=== PATIENT | male | born 1950 | race Caucasian/White ===

== ENCOUNTER 2017-03-21 13:06 | Outpatient (CLI) | payer MEDICARE | END 2017-03-21 13:07 | disposition home or self-care (01) | LOC: CP 13:06 | PROVIDERS: ATTEND Internal Medicine | DX: J44.9 Chronic obstructive pulmonary disease, unspecified (principal) | CPT/HCPCS: 94060; 94727; 94729 ==

== ENCOUNTER 2017-08-04 20:30 | Outpatient (CLI) | payer MEDICARE | END 2017-08-04 20:31 | disposition home or self-care (01) | LOC: SLEEPLAB 20:30 | PROVIDERS: ATTEND Internal Medicine | DX: G47.33 Obstructive sleep apnea (adult) (pediatric) (principal); G47.61 Periodic limb movement disorder; G47.31 Primary central sleep apnea; R09.02 Hypoxemia | CPT/HCPCS: 95811 ==

== ENCOUNTER 2017-09-21 09:27 | Outpatient (CLI) | payer MEDICARE ==
--- NOTE | 2017-09-21 10:56 | RAD ---
CHEST 2 VIEWS: HISTORY: Dyspnea. COMPARISON: Chest radiograph 11/12/16. FINDINGS: Tiny right effusion is similar. There is a nodular mass right lower lobe. Adjacent to this is also a mass-like opacity. There is layering left effusion. No pneumothorax. IMPRESSION: Concern for possible 2 right lower lobe masses that may reflect focal localization of fluid in the fi ssure. CT of the chest with contrast recommended. POS: [facility]
== END 2017-09-21 09:28 | disposition home or self-care (01) ==
LOC: RAD 09:27
PROVIDERS: ATTEND Internal Medicine
DX: R06.00 Dyspnea, unspecified (principal); R91.8 Other nonspecific abnormal finding of lung field
CPT/HCPCS: 71046

== ENCOUNTER 2017-09-21 10:47 | Inpatient (IN) | payer MEDICARE ==
[2017-09-21 11:27] LABS: #Eosinphils 0.1 thou/uL (0.0-0.7); #Lymphocytes 1.9 thou/uL (1.20-3.40); #Monocytes 1.1 thou/uL (0.11-0.59); #Neutrophils 8.2 thou/uL (1.40-6.50); %Basophils 0.3 % (0.0-1.0); %Eosinophils 1.2 % (0.0-10.0); %Lymphocytes 16.8 % (21.0-51.0); %Monocytes 9.9 % (0.0-10.0); %Neutrophils 71.8 % (42.0-75.0); Mean Corpuscular HGB CONC 30.8 g/dL (32.0-36.0); Mean Corpuscular Hemoglobin 23.9 pg (27.0-31.0); Mean Corpuscular Volume 77.7 fl (80.0-94.0); Mean Platelet Volume 6.5 fL (7.4-10.4); Platelet Count 442 thou/uL (130-400); RBC Distribution Width 16.9 % (11.5-14.5); Red Blood Cell (RBC) Count 5.03 mill/uL (4.70-6.10); White Blood Cell (WBC) Count 11.4 thou/uL (4.8-10.8)
[2017-09-21 11:56] LABS: CKMB 0.4 ng/mL (0-6.6); Troponin I Less than 0.010 ng/mL (< 0.028)
[2017-09-21 11:58] LABS: ALT (SGPT) 10 U/L (8-55); AST (SGOT) 10 U/L (5-34); Albumin 2.8 g/dL (3.4-4.8); Alkaline Phosphatase 72 U/L (40-150); Anion Gap 10 mmol/L (10-20); BUN (Urea Nitrogen) 23 mg/dL (8.4-25.7); Bilirubin, Total 0.4 mg/dL (0.2-1.2); Calc. Creatinine Clearance 0 mL/min (70-130); Calcium 8.4 mg/dL (7.8-10.44); Carbon Dioxide 25 mmol/L (23-31); Chloride 107 mmol/L (98-107); Estimated GFR-MDRD 75; Globulin 3.4 g/dL (2.4-3.5); Glucose 80 mg/dL (80-115); Potassium 4.2 mmol/L (3.5-5.1); Protein, Total 6.2 g/dL (5.8-8.1); Sodium 138 mmol/L (136-145)
[2017-09-21] MEDS ORDERED: Furosemide 40 MG/4 ML VIAL ONE (14:14)
[2017-09-21] MEDS ORDERED: Acetaminophen 325 MG TAB PO PRN (15:05)
[2017-09-21] MEDS ORDERED: Guaifenesin DM 100-10/5 ML UDCUP PO PRN (15:05)
[2017-09-21] MEDS ORDERED: predniSONE 20 MG TAB PO SCH (15:30)
[2017-09-21 16:08] VITALS: BMI 21.7
--- NOTE | 2017-09-21 17:11 | HP ---
REASON FOR ADMISSION: Anasarca, mesothelioma with likely recurrence and bilateral effusion with shortness of breath on minimal exertion, acute respiratory failure with hypoxia with saturations of less than 90% on arrival here in the ER. HISTORY OF PRESENT ILLNESS: The patient gives history of planned bilateral hernia repair at [facility] by Dr. Guthrie tomorrow. In view of this, he had gone to see Dr. Santillan for pulmonary clearance. The patient has anasarca with fluid retention and was also hypoxic in his office. He has been progressively getting short of breath and was in fact getting worse even with minimal exertion. He was told he needs diuresis and had to get admitted. The patient has known history of mesothelioma diagnosed in 2011. He was given 1 year of chemo plus 6 months of maintenance treatment by Dr. Crockett. The patient stopped treatments as he could not tolerate it anymore from 2013. He has had follow ups with Dr. Crockett with PET scans and x-rays. The at bedside adds that he has not seen Dr. Crockett from last year and a half now. No complaints of fever. Has expectoration of clear sputum. No complaints of chest pain or palpitation. The patient has orthopnea and is comfortable at 45 degrees head end elevation. PAST MEDICAL AND SURGICAL HISTORY: History of prostatic hyperplasia with self catheterization up to 6 times a day, history of mesothelioma diagnosed in 2011, has finished a year of chemo and 6 months of maintenance treatment. He could not tolerate and had quit taking all together in 2013. C4-C5 neck surgery, varicose vein ablation done by Dr. Luu, surgery for intussusception as an infant, COPD. CURRENT MEDICATIONS: Lasix 40 mg twice daily, Flonase inhaler p.r.n., albuterol inhaler from last 1 week q.6 hours p.r.n., finasteride 5 mg daily. ALLERGIES: Allergic to SULFA. PERSONAL HISTORY: Does not abuse alcohol or drugs. Quit smoking in 10/2016 and smoked one pack a day for nearly 40 years. FAMILY HISTORY: Mother of old age at the age of 92 years. Father at the age of 68 years. He has had history of [place], brain aneurysm and stroke. REVIEW OF SYSTEMS: The following complete review of systems was negative, unless otherwise mentioned in the HPI or below: Constitutional: Weight loss or gain, ability to conduct usual activities. Skin: Rash, itching. Eyes: Double vision, pain. ENT/Mouth: Nose bleeding, neck stiffness, pain, tenderness. Cardiovascular: Palpitations, dyspnea on exertion, orthopnea. Respiratory: Shortness of breath, wheezing, cough, hemoptysis, fever or night sweats. Gastrointestinal: Poor appetite, abdominal pain, heartburn, nausea, vomiting, constipation, or diarrhea. Genitourinary: Urgency, frequency, dysuria, nocturia. Musculoskeletal: Pain, swelling. Neurologic/Psychiatric: Anxiety, depression. Allergy/Immunologic: Skin rash, bleeding tendency. CODE STATUS: FULL. Power of workers compensation defense attorney is his . PHYSICAL EXAMINATION: GENERAL: The patient is a 67-year-old male who is currently not in any acute distress. VITAL SIGNS: Blood pressure 134/88, pulse 84 per minute, respiratory rate 22 per minute, temperature 98.2 degrees Fahrenheit, saturating 93% on 4 liters nasal cannula, was less than 90% on room air on arrival. NECK: Supple, no elevated JVD. HEENT: Eyes, extraocular muscles intact. Pupils reacting to light. Oral cavity mucous membranes are moist. No exudates or congestion. CARDIOVASCULAR: S1, S2 heard. Regular rhythm. RESPIRATORY: Air entry is decreased bilaterally. There are rales plus in the intrascapular area. ABDOMEN: Soft, bowel sounds heard. No tenderness, rigidity or guarding. He has edema around waist and lower abdomen, scrotal edema as well. EXTREMITIES: Mild pedal edema plus, no calf tenderness. VASCULAR SYSTEM: Peripheral pulses 1+ bilateral, no ischemic ulcerations or gangrene. CENTRAL NERVOUS SYSTEM: No gross focal deficits seen. Patient is alert, awake , oriented well. PSYCHIATRIC: The patient's mood is euthymic. No hallucinations or delusions. LABORATORY DATA AND X-RAY FINDINGS: White count of 11, H&H is 12 and 39, platelet count 442, MCV is 77 with 71% neutrophils. Electrolytes are stable. BUN 23, creatinine 0.9, glucose 80. Liver enzymes are within normal limits. Albumin is 2.8. Chest x-ray done shows two right lower lobe masses, which may reflect focal localization of fluid in the fissure. EKG done shows sinus rhythm at 83 beats per minute. There is incomplete RBBB. Prior echo done in shows an EF of 50%-55%. There is small pericardial effusion then. CLINICAL IMPRESSION AND PLAN: The patient will be admitted to medical floor for acute on chronic obstructive pulmonary disease exacerbation, anasarca with volume retention including bilateral pleural effusion and edema over the entire back area. The patient states he usually ambulates like he can go around the entire [employer] in one go. He has not been able to do so from last 4 weeks or so. This has been gradually getting worse to the point that he is getting short of breath even for moving from his room to the restroom now. The plan is to diurese him with Lasix 40 mg IV q.12 hours along with DuoNeb. We will consult Dr. Santillan. We will also obtain a CT chest after diuresis to see for the mass and for better delineation of his lung massey. He has known history of mesothelioma and likely has a recurrence from it. His ejection fraction was good in 2017. The patient has low albumin of 2.8 as well which might be contributing for his anasarca. We will continue to closely monitor him on medical floor. STEW
[2017-09-21] MEDS: Amoxicillin/Potassium Clav 875 MG TAB PO SCH (21:08)
[2017-09-21] MEDS: guaiFENesin ER 600 MG TAB PO SCH (21:09)
[2017-09-21] MEDS: Famotidine 20 MG TAB PO SCH (21:09)
[2017-09-21] MEDS: Docusate 100 MG CAP PO SCH (21:09)
[2017-09-22 05:07] LABS: #Lymphocytes 0.6 thou/uL (1.20-3.40); #Monocytes 0.3 thou/uL (0.11-0.59); #Neutrophils 6.6 thou/uL (1.40-6.50); %Basophils 0.6 % (0.0-1.0); %Eosinophils 0.1 % (0.0-10.0); %Lymphocytes 8.4 % (21.0-51.0); %Monocytes 3.7 % (0.0-10.0); %Neutrophils 87.1 % (42.0-75.0); Hemoglobin 11.3 g/dL (14.0-18.0); Mean Corpuscular HGB CONC 30.3 g/dL (32.0-36.0); Mean Corpuscular Hemoglobin 23.3 pg (27.0-31.0); Mean Corpuscular Volume 76.8 fl (80.0-94.0); Mean Platelet Volume 6.8 fL (7.4-10.4); Platelet Count 427 thou/uL (130-400); RBC Distribution Width 16.7 % (11.5-14.5); Red Blood Cell (RBC) Count 4.83 mill/uL (4.70-6.10); White Blood Cell (WBC) Count 7.6 thou/uL (4.8-10.8)
[2017-09-22] MEDS: Furosemide 40 MG/4 ML VIAL SLOW IVP SCH ×2 (05:28→14:36)
[2017-09-22 05:36] LABS: Anion Gap 8 mmol/L (10-20); BUN (Urea Nitrogen) 22 mg/dL (8.4-25.7); Calc. Creatinine Clearance 74 mL/min (70-130); Calcium 8.2 mg/dL (7.8-10.44); Carbon Dioxide 26 mmol/L (23-31); Chloride 106 mmol/L (98-107); Estimated GFR-MDRD 78; Glucose 149 mg/dL (80-115); Potassium 4.2 mmol/L (3.5-5.1); Sodium 136 mmol/L (136-145)
[2017-09-22] MEDS: guaiFENesin ER 600 MG TAB PO SCH ×2 (08:16→22:03)
[2017-09-22] MEDS: Amoxicillin/Potassium Clav 875 MG TAB PO SCH ×2 (08:16→22:03)
[2017-09-22] MEDS: Enoxaparin Sodium 40 MG/0.4 ML SYRINGE SC SCH (08:16)
[2017-09-22] MEDS: predniSONE 20 MG TAB PO SCH (08:16)
[2017-09-22] MEDS: Finasteride 5 MG TAB PO SCH (08:16)
[2017-09-22] MEDS: Famotidine 20 MG TAB PO SCH ×2 (08:16→22:03)
[2017-09-22] MEDS: Docusate 100 MG CAP PO SCH ×2 (08:16→22:03)
--- NOTE | 2017-09-22 17:06 | CON ---
DATE OF CONSULTATION: 09/22/2017 SERVICE: Pulmonary Medicine. REASON FOR CONSULT: Acute on chronic hypoxic respiratory failure. HISTORY OF PRESENT ILLNESS: The patient is a 67-year-old white male with past medical history significant for chronic diastolic heart failure. He usually takes Lasix on a daily basis. Recently, it has been a little bit less effective. He ended up with massive volume overload. He was supposed to go for an operation today for an elective hernia repair. Ultimately, he came to my office because he was so short of breath, he could barely walk across the room. When I listened to him, it was clear that he was significantly volume overloaded. As such, his saturations were 80% in my office and I redirected him to the Emergency Department. I asked his to cancel the surgery because under these circumstances, he certainly would not be optimized to proceed with that. He was touch frustrated, but understood that moving forward with the surgery under these conditions would increase his risk. Either way, he was put in the hospital. He was appropriately diuresed overnight. This morning, he feels incredible. He has been breathing much better. He got first not impressed that he has long time last night. He has been ambulating in the hallways almost continuously. He currently denies any fevers, chills, nausea or vomiting. He is coughing up a little bit of white sputum, but it still less traumatic today than it was previously. He is no longer having any orthopnea. At home, he wears a noninvasive ventilator for severe obstructive and central sleep apneas. PAST MEDICAL HISTORY: 1. Chronic diastolic heart failure. 2. Obstructive sleep apnea, severe. 3. Essential sleep apnea, severe. 4. Benign prostate hyperplasia. 5. Emphysema, severe. 6. Chronic obstructive pulmonary disease, mild. PAST SURGICAL HISTORY: 1. Abdominal surgery for intussusception as an . 2. Leg vein ablation. 3. C4-C5 neck surgery. 4. History of mesothelioma diagnosed in the right chest cavity in 2011, status post chemotherapy. ALLERGIES: SULFA. MEDICATIONS: List of his inpatient medications were reviewed. No specific updates were made at this time. I did add antibiotics and steroids for his mild COPD exacerbation yesterday. SOCIAL HISTORY: The patient has a greater than [id number] history of smoking , but quit remotely. He does not use any alcohol or illicit drugs. He has no exposure to chemicals, dust asbestos, or tuberculosis. FAMILY HISTORY: Noncontributory. REVIEW OF SYSTEMS: General, head, ears, eyes, nose, throat, cardiovascular, respiratory, GI, , musculoskeletal, neurologic and skin is negative except as mentioned in the HPI. PHYSICAL EXAMINATION: VITAL SIGNS: Afebrile, pulse 81, blood pressure 107/67, respirations 18, saturation 93% on 3 liters nasal cannula. GENERAL: The patient is awake and alert, in no apparent distress. LUNGS: Much improved air entry in the basilar region. He still has a little dullness to percussion there. There are some crackles present, but less extensive. Minimal prolongation of the expiratory phase is present and I do not appreciate any wheezing. HEART: Normal rate, regular. ABDOMEN: Soft, nontender, and nondistended. Bowel sounds are positive. MUSCULOSKELETAL: No cyanosis or clubbing. Yesterday, he had 2+ edema. Today, he has got trace edema of the bilateral lower extremities. NEUROLOGIC: Grossly nonfocal. LABORATORY DATA: WBC 7.6, hemoglobin 11.3, platelets 427,000. Basic metabolic profile is essentially unremarkable. Liver function studies are normal. Troponin is negative x1 and BNP was only 92. IMAGING: Chest x-ray yesterday demonstrated increasing pleural effusions, fluid in the fissure bilaterally. ASSESSMENT: 1. Acute on chronic hypoxic respiratory failure. 2. Chronic obstructive pulmonary disease with mild acute exacerbation. 3. Acute on chronic diastolic heart failure. 4. Obstructive sleep apnea, severe. 5. Central sleep apnea, severe. 6. History of mesothelioma. PLAN: I will continue to diurese the patient's euvolemia. Antibiotics and steroids can be discontinued after a total duration of 5 days. I will repeat a chest x-ray tomorrow morning. If he is back down to room air and the effusions are getting smaller, we can consider him for transition out of the hospital in the morning. Pulmonary will continue to follow while the patient remains in- house. From my perspective, he is now optimized to proceed with an elective outpatient procedure. He can call his physician on Monday to reschedule his elective herniorrhaphy. 70 minutes have been devoted to this patient in various activities. I personally reviewed all imaging studies and laboratory data noted within this document. For fifty percent of this time, I was interacting with the patient at the bedside or coordinating care with the care team. For the remainder of the time I was immediately available to the patient in the hospital unit. STEW
--- NOTE | 2017-09-22 18:46 | PDOC.PN ---
- Subjective Encounter Start Date: 09/22/17 Encounter Start Time: 09:20 Subjective: breathing better, no chest pain or sob - Objective Resuscitation Status: Resuscitation Status FULL:Full Resuscitation MAR Reviewed: Yes Vital Signs & Weight: Vital Signs (12 hours) Temp Pulse Resp BP Pulse Ox 09/22/17 08:00 98.2 F 81 18 93 L 09/22/17 07:15 98.2 F 81 18 107/67 93 L Weight Weight 159 lb 11.2 oz I&O: 09/21/17 09/22/17 09/23/17 06:59 06:59 06:59 Intake Total 600 Output Total 1300 Balance -700 Result Diagrams: 09/22/17 04:37 09/22/17 04:37 Phys Exam - Physical Examination HEENT: PERRLA, moist MMs Neck: no JVD, supple Respiratory: no wheezing rales+ Cardiovascular: RRR, no significant murmur Gastrointestinal: soft, non-tender, positive bowel sounds lower abd post area edema++ Musculoskeletal: no edema, pulses present Neurological: non-focal, moves all 4 limbs Psychiatric: normal affect, A&O x 3 Dx/Plan (1) COPD exacerbation Code(s): J44.1 - CHRONIC OBSTRUCTIVE PULMONARY DISEASE W (ACUTE) EXACERBATION Status: Acute (2) H/O malignant mesothelioma Code(s): Z85.89 - PERSONAL HISTORY OF MALIGNANT NEOPLASM OF ORGANS AND SYSTEMS Status: Chronic (3) Acute respiratory failure with hypoxia Code(s): J96.01 - ACUTE RESPIRATORY FAILURE WITH HYPOXIA Status: Resolved (4) ZOIE (obstructive sleep apnea) Code(s): G47.33 - OBSTRUCTIVE SLEEP APNEA (ADULT) (PEDIATRIC) Status: Chronic (5) Anasarca Code(s): R60.1 - GENERALIZED EDEMA Status: Acute Comment: resolving, due to malignancy and low albumin with deconditioning (6) Hypoalbuminemia Code(s): E88.09 - OTH DISORDERS OF PLASMA-PROTEIN METABOLISM, NEC Status: Chronic Comment: due to malignancy (7) Chronic anemia Code(s): D64.9 - ANEMIA, UNSPECIFIED Status: Chronic (8) Bilateral pleural effusion Code(s): J90 - PLEURAL EFFUSION, NOT ELSEWHERE CLASSIFIED Status: Acute (9) BPH (benign prostatic hyperplasia) Code(s): N40.0 - BENIGN PROSTATIC HYPERPLASIA WITHOUT LOWER URINRY TRACT SYMP Status: Chronic Qualifiers: Lower urinary tract symptom presence: symptoms present Comment: does in and out cath at home, here on cabello due to diuresis - Plan gentle diuresis -: augmentin, nebs, prednisone -: hemostable -: is amb in hallway -: has positional edema around waist line due to deconditioning and low alb * . Review of Systems - Medications/Allergies Allergies/Adverse Reactions: Allergies Allergy/AdvReac Type Severity Reaction Status Date / Time Sulfa (Sulfonamide Allergy Headache Verified 09/21/17 15:40 Antibiotics) Medications: Current Medications Acetaminophen (Tylenol) 650 mg PO Q4H PRN PRN Reason: Headache/Fever or Pain Albuterol/Ipratropium (Duoneb) 3 ml NEB [id number] [facility] Last Admin: 09/22/17 12:10 Dose: Not Given Amoxicillin/Clavulanate Potassium (Augmentin) 875 mg PO Q12HR [facility] Stop: 09/26/17 21:01 Last Admin: 09/22/17 08:16 Dose: 875 mg Docusate Sodium (Colace) 100 mg PO BID [facility] Last Admin: 09/22/17 08:16 Dose: 100 mg Enoxaparin Sodium (Lovenox) 40 mg SC 0900 [facility] Last Admin: 09/22/17 08:16 Dose: 40 mg Famotidine (Pepcid) 20 mg PO BID [facility] Last Admin: 09/22/17 08:16 Dose: 20 mg Finasteride (Proscar) 5 mg PO DAILY [facility] Last Admin: 09/22/17 08:16 Dose: 5 mg Furosemide (Lasix) 40 mg SLOW IVP 0600,1400 [facility] Last Admin: 09/22/17 14:36 Dose: 40 mg Guaifenesin (Mucinex) 1,200 mg PO Q12HR [facility] Last Admin: 09/22/17 08:16 Dose: 1,200 mg Prednisone (Prednisone) 40 mg PO QAM[facility] Stop: 09/26/17 08:01 Last Admin: 09/22/17 08:16 Dose: 40 mg
[2017-09-23] MEDS: Furosemide 40 MG/4 ML VIAL SLOW IVP SCH (06:16)
[2017-09-23 07:35] LABS: Anion Gap 10 mmol/L (10-20); BUN (Urea Nitrogen) 28 mg/dL (8.4-25.7); Calc. Creatinine Clearance 78 mL/min (70-130); Calcium 8.3 mg/dL (7.8-10.44); Carbon Dioxide 27 mmol/L (23-31); Chloride 103 mmol/L (98-107); Estimated GFR-MDRD 83; Glucose 98 mg/dL (80-115); Potassium 3.8 mmol/L (3.5-5.1); Sodium 136 mmol/L (136-145)
[2017-09-23] MEDS: guaiFENesin ER 600 MG TAB PO SCH ×2 (07:59→21:24)
[2017-09-23] MEDS: Finasteride 5 MG TAB PO SCH (07:59)
[2017-09-23] MEDS: predniSONE 20 MG TAB PO SCH (08:00)
[2017-09-23] MEDS: Amoxicillin/Potassium Clav 875 MG TAB PO SCH ×2 (08:00→21:24)
[2017-09-23] MEDS: Famotidine 20 MG TAB PO SCH ×2 (08:01→21:24)
[2017-09-23] MEDS: Enoxaparin Sodium 40 MG/0.4 ML SYRINGE SC SCH (08:01)
[2017-09-23] MEDS: Docusate 100 MG CAP PO SCH ×2 (08:01→21:24)
--- NOTE | 2017-09-23 10:51 | RAD ---
TWO VIEWS CHEST: DATE: 09/23/17. PROVIDED CLINICAL HISTORY: Followup effusion. FINDINGS: Comparison is made with the study dated 09/21/17. Cardiac and mediastinal silhouette is unchanged in appearance. Moderate bilateral pleural effusions are noted, which appear slightly improved with resp ect to the prior study. Right lower lung zone mass on the frontal view is redemonstrated. Emphysema tous changes are suggested. There is no evidence for pneumothorax. IMPRESSION: 1. Persistent but slightly improved bilateral pleural effusions. 2. Concern for parenchymal mass involving the right lower lung. This could also reflect loculated p leural fluid. POS: [facility]
--- NOTE | 2017-09-23 11:22 | PDOC.PN ---
- Subjective Encounter Start Date: 09/23/17 Encounter Start Time: 08:25 Subjective: breathing better, is amb in hallway - Objective Resuscitation Status: Resuscitation Status FULL:Full Resuscitation MAR Reviewed: Yes Vital Signs & Weight: Vital Signs (12 hours) Temp Pulse Resp BP Pulse Ox 09/23/17 08:00 97.7 F 71 16 95 09/23/17 07:51 97.7 F 71 16 112/73 99 09/23/17 06:52 74 16 96 09/23/17 00:28 77 16 97 Weight Weight 159 lb 11.2 oz I&O: 09/22/17 09/23/17 09/24/17 06:59 06:59 06:59 Intake Total 600 Output Total 1300 600 Balance -700 -600 Result Diagrams: 09/22/17 04:37 09/23/17 06:51 Phys Exam - Physical Examination HEENT: PERRLA, moist MMs Neck: no JVD, supple Respiratory: no wheezing, no rales Cardiovascular: RRR, no significant murmur Gastrointestinal: soft, non-tender, positive bowel sounds abd wall edema around waist Musculoskeletal: no edema, pulses present Neurological: non-focal, moves all 4 limbs Psychiatric: normal affect, A&O x 3 Dx/Plan (1) COPD exacerbation Code(s): J44.1 - CHRONIC OBSTRUCTIVE PULMONARY DISEASE W (ACUTE) EXACERBATION Status: Acute (2) H/O malignant mesothelioma Code(s): Z85.89 - PERSONAL HISTORY OF MALIGNANT NEOPLASM OF ORGANS AND SYSTEMS Status: Chronic (3) Acute respiratory failure with hypoxia Code(s): J96.01 - ACUTE RESPIRATORY FAILURE WITH HYPOXIA Status: Resolved (4) ZOIE (obstructive sleep apnea) Code(s): G47.33 - OBSTRUCTIVE SLEEP APNEA (ADULT) (PEDIATRIC) Status: Chronic (5) Anasarca Code(s): R60.1 - GENERALIZED EDEMA Status: Acute Comment: resolving, due to malignancy and low albumin with deconditioning (6) Hypoalbuminemia Code(s): E88.09 - OTH DISORDERS OF PLASMA-PROTEIN METABOLISM, NEC Status: Chronic Comment: due to malignancy (7) Chronic anemia Code(s): D64.9 - ANEMIA, UNSPECIFIED Status: Chronic (8) Bilateral pleural effusion Code(s): J90 - PLEURAL EFFUSION, NOT ELSEWHERE CLASSIFIED Status: Acute (9) BPH (benign prostatic hyperplasia) Code(s): N40.0 - BENIGN PROSTATIC HYPERPLASIA WITHOUT LOWER URINRY TRACT SYMP Status: Chronic Qualifiers: Lower urinary tract symptom presence: symptoms present Comment: does in and out cath at home, here on cabello due to diuresis - Plan is diuresing well -: still has edema around waist line -: prefer 1 more day of iv diuretics -: dc plan in am on oral diuretics -: nebs prn, augmentin * . He may reschedule his hernia surgery next week Review of Systems - Medications/Allergies Allergies/Adverse Reactions: Allergies Allergy/AdvReac Type Severity Reaction Status Date / Time Sulfa (Sulfonamide Allergy Headache Verified 09/21/17 15:40 Antibiotics) Medications: Current Medications Acetaminophen (Tylenol) 650 mg PO Q4H PRN PRN Reason: Headache/Fever or Pain Albuterol/Ipratropium (Duoneb) 3 ml NEB [id number] [facility] Last Admin: 09/23/17 06:52 Dose: 3 ml Amoxicillin/Clavulanate Potassium (Augmentin) 875 mg PO Q12HR [facility] Stop: 09/26/17 21:01 Last Admin: 09/23/17 08:00 Dose: 875 mg Docusate Sodium (Colace) 100 mg PO BID [facility] Last Admin: 09/23/17 08:01 Dose: 100 mg Enoxaparin Sodium (Lovenox) 40 mg SC 0900 [facility] Last Admin: 09/23/17 08:01 Dose: 40 mg Famotidine (Pepcid) 20 mg PO BID [facility] Last Admin: 09/23/17 08:01 Dose: 20 mg Finasteride (Proscar) 5 mg PO DAILY [facility] Last Admin: 09/23/17 07:59 Dose: 5 mg Furosemide (Lasix) 40 mg SLOW IVP 0600,1400 [facility] Last Admin: 09/23/17 06:16 Dose: 40 mg Guaifenesin (Mucinex) 1,200 mg PO Q12HR [facility] Last Admin: 09/23/17 07:59 Dose: 1,200 mg Prednisone (Prednisone) 40 mg PO QA-[facility] Stop: 09/26/17 08:01 Last Admin: 09/23/17 08:00 Dose: 40 mg
--- NOTE | 2017-09-23 14:27 | PRG ---
DATE OF SERVICE: 09/23/2017 SERVICE: Pulmonary Medicine. INTERVAL HISTORY: The patient is doing really quite well from a respiratory standpoint. He denies a ny current chest pain, nausea, vomiting, and shortness of breath. His breathing is doing fairly well . He does not have any significant dyspnea any longer. He has been able to walk around the hallways multiple times on room air. Otherwise, there has been no interval change to his condition. PHYSICAL EXAMINATION: VITAL SIGNS: Afebrile, pulse 71, blood pressure 112/73, respirations 16, saturation on room air is 9 3%. GENERAL: The patient is awake and alert. HEENT: Normocephalic, atraumatic. Sclerae are white, conjunctivae pink. Oral mucosa is moist and w ithout lesions. LUNGS: Decent air entry. There is no prolonged expiratory phase, wheezing, rhonchi or crackles. HEART: Normal rate, regular. ABDOMEN: Soft, nontender, and nondistended. Bowel sounds are positive. MUSCULOSKELETAL: No cyanosis or clubbing. There is no pitting in the bilateral lower extremities. NEUROLOGIC: Grossly nonfocal. LABORATORY DATA: Sodium 136. Potassium 3.8 and creatinine 0.91. Basic metabolic profile is otherwi se unremarkable. IMAGING: Chest x-ray demonstrates interval improvement in the pleural effusions and pulmonary vascul ar congestion. The right lower lobe pulmonary lesion previously was represented on CTA of the chest as a loculated pleural effusion from his previous surgery and interventions. ASSESSMENT: 1. Acute hypoxic respiratory failure, resolved. 2. Chronic obstructive pulmonary disease with mild exacerbation. 3. Acute on chronic diastolic heart failure. 4. Obstructive sleep apnea, severe. 5. Central sleep apnea, severe. 6. History of mesothelioma on the right with residual changes on that side. PLAN: The patient's pleural effusions are improving in fairly dramatic fashion. The patient is feel ing much better as well. I will decrease his Lasix to once daily. He can get a dose tomorrow mornin g and if all goes well, he can be considered for transition out of the hospital. From my perspective , he is optimized to proceed with an elective outpatient procedure. Hopefully, his herniorrhaphy can be rescheduled for next week.
[2017-09-24] MEDS ORDERED: Furosemide 40 MG/4 ML VIAL ONE (04:41)
[2017-09-24] MEDS: Furosemide 40 MG/4 ML VIAL SLOW IVP SCH ×2 (05:24→08:10)
[2017-09-24 05:46] LABS: Anion Gap 10 mmol/L (10-20); BUN (Urea Nitrogen) 31 mg/dL (8.4-25.7); Calc. Creatinine Clearance 79 mL/min (70-130); Calcium 8.3 mg/dL (7.8-10.44); Carbon Dioxide 29 mmol/L (23-31); Chloride 103 mmol/L (98-107); Estimated GFR-MDRD 84; Glucose 98 mg/dL (80-115); Magnesium 2.2 mg/dL (1.6-2.6); Potassium 4.3 mmol/L (3.5-5.1); Sodium 138 mmol/L (136-145)
[2017-09-24] MEDS: Finasteride 5 MG TAB PO SCH (08:10)
[2017-09-24] MEDS: Famotidine 20 MG TAB PO SCH (08:10)
[2017-09-24] MEDS: Enoxaparin Sodium 40 MG/0.4 ML SYRINGE SC SCH (08:10)
[2017-09-24] MEDS: Amoxicillin/Potassium Clav 875 MG TAB PO SCH (08:10)
[2017-09-24] MEDS: predniSONE 20 MG TAB PO SCH (08:10)
[2017-09-24] MEDS: Docusate 100 MG CAP PO SCH (08:10)
[2017-09-24] MEDS: guaiFENesin ER 600 MG TAB PO SCH (08:10)
[2017-09-24 11:22] VITALS: BP 120/67; TEMP 97.2
--- NOTE | 2017-09-24 11:37 | PDOC.PN ---
- Subjective Encounter Start Date: 09/24/17 Encounter Start Time: 08:45 Subjective: no sob, feels better -: is amb in hallway - Objective Resuscitation Status: Resuscitation Status FULL:Full Resuscitation MAR Reviewed: Yes Vital Signs & Weight: Vital Signs (12 hours) Temp Pulse Resp BP Pulse Ox 09/24/17 11:21 97.2 F L 73 18 120/67 94 L 09/24/17 08:00 98.0 F 75 18 96 09/24/17 07:31 77 18 93 L 09/24/17 07:00 98.0 F 75 16 124/82 100 09/24/17 00:17 95 16 97 Weight Weight 159 lb 11.2 oz I&O: 09/23/17 09/24/17 09/25/17 06:59 06:59 06:59 Intake Total 1480 800 Output Total 600 2400 2100 Balance -492 -245 -5124 Result Diagrams: 09/22/17 04:37 09/24/17 04:55 Phys Exam - Physical Examination HEENT: PERRLA, moist MMs Neck: no JVD, supple Respiratory: no wheezing, no rales Cardiovascular: RRR, no significant murmur Gastrointestinal: soft, non-tender, positive bowel sounds Musculoskeletal: no edema, pulses present Neurological: non-focal, moves all 4 limbs Psychiatric: normal affect, A&O x 3 Dx/Plan (1) COPD exacerbation Code(s): J44.1 - CHRONIC OBSTRUCTIVE PULMONARY DISEASE W (ACUTE) EXACERBATION Status: Acute (2) H/O malignant mesothelioma Code(s): Z85.89 - PERSONAL HISTORY OF MALIGNANT NEOPLASM OF ORGANS AND SYSTEMS Status: Chronic (3) Acute respiratory failure with hypoxia Code(s): J96.01 - ACUTE RESPIRATORY FAILURE WITH HYPOXIA Status: Resolved (4) ZOIE (obstructive sleep apnea) Code(s): G47.33 - OBSTRUCTIVE SLEEP APNEA (ADULT) (PEDIATRIC) Status: Chronic (5) Anasarca Code(s): R60.1 - GENERALIZED EDEMA Status: Acute Comment: resolving, due to malignancy and low albumin with deconditioning (6) Hypoalbuminemia Code(s): E88.09 - OTH DISORDERS OF PLASMA-PROTEIN METABOLISM, NEC Status: Chronic Comment: due to malignancy (7) Chronic anemia Code(s): D64.9 - ANEMIA, UNSPECIFIED Status: Chronic (8) Bilateral pleural effusion Code(s): J90 - PLEURAL EFFUSION, NOT ELSEWHERE CLASSIFIED Status: Acute (9) BPH (benign prostatic hyperplasia) Code(s): N40.0 - BENIGN PROSTATIC HYPERPLASIA WITHOUT LOWER URINRY TRACT SYMP Status: Chronic Qualifiers: Lower urinary tract symptom presence: symptoms present Comment: does in and out cath at home, here on cabello due to diuresis - Plan hemostable -: dc pt home on oral lasix -: augmentin, steroid taper over 5 days -: to reschedule his hernia repair this week * .
--- NOTE | 2017-09-26 07:54 | DIS ---
DATE OF ADMISSION: 09/21/2017 DATE OF DISCHARGE: 09/24/2017 DISCHARGE DISPOSITION: Home. PRIMARY DISCHARGE DIAGNOSES: Acute chronic obstructive pulmonary disease exacerbation; acute respira tory failure with hypoxia, resolved; history of malignant mesothelioma; anasarca, resolved; obstructi ve sleep apnea, on CPAP; hypoalbuminemia; chronic anemia; benign prostatic hypertrophy; bilateral ple ural effusions. PROCEDURES DONE DURING HOSPITALIZATION: Chest x-ray done on the day of admission showed bilateral pl eural effusion, there is also parenchymal mass in the right lower lung. H and H 11 and 37, platelet count 427,000 with 87% neutrophils, MCV 76, BUN 31, creatinine 0.9, albumin is 2.8. BNP was 92. DISCHARGE MEDICATION: Augmentin 875 mg p.o. daily for another 4 days, albuterol inhaler q.4 hourly p .r.n., Symbicort inhaler 2 puffs twice daily, finasteride 5 mg p.o. daily, Lasix 40 mg daily, prednis one tapering dose starting at 10 mg daily for 3 days, then 5 mg daily for 4 days and to discontinue. ALLERGIES: Allergic to SULFA. INPATIENT CONSULT: Dr. Santillan for Pulmonology. DISCHARGE PLAN: Patient is to follow up with Dr. Santillan in 2 weeks. He also needs to follow up wit h his general surgeon in 1 week and primary care physician in 1 week. BRIEF COURSE DURING HOSPITALIZATION: Patient initially was sent from Dr. Santillan's office for worsen ing shortness of breath on exertion and anasarca. The patient also had saturations of less than 90% in Dr. Santillan office and on arrival as well. He has had bilateral effusions with anasarca. The pat ient was gently diuresed. He also has history of chronic mesothelioma. The patient stopped taking c hemotherapy from 2013 onwards. The patient was scheduled for bilateral hernia repair and had come to see Dr. Santillan for clearance when all of this happened. He was hospitalized and has had gentle diu resis done. The patient has been ambulating in the hallway now. He is also tolerating oral diet. H is effusions and anasarca are resolving. He needs to continue Lasix as before. The patient is to re schedule his hernia surgery. He has been cleared for the same by Dr. Santillan. He is hemodynamically stable and will be shortly discharged home. Please see a [id number] documentation on [facility] for the day of discharge.
== END 2017-09-24 11:26 | disposition home or self-care (01) | DRG 189 ==
LOC: ERS 10:47 → T4-B 14:01
PROVIDERS: ADMIT Internal Medicine; ATTEND Internal Medicine
DX: J96.01 Acute respiratory failure with hypoxia (principal); I50.32 Chronic diastolic (congestive) heart failure; C45.9 Mesothelioma, unspecified; J44.1 Chronic obstructive pulmonary disease with (acute) exacerbation; J90 Pleural effusion, not elsewhere classified; D64.9 Anemia, unspecified; G47.33 Obstructive sleep apnea (adult) (pediatric); N40.0 Benign prostatic hyperplasia without lower urinary tract symptoms; I45.10 Unspecified right bundle-branch block; K46.9 Unspecified abdominal hernia without obstruction or gangrene
CPT/HCPCS: 36415; 71046; 80048; 80053; 82553; 83735; 83880; 84484; 85025; 93005; 94640; 94760; 96374; J1650; J1940; J7506; J7620

== ENCOUNTER 2017-10-18 10:29 | Outpatient (CLI) | payer MEDICARE ==
--- NOTE | 2017-10-18 11:09 | RAD ---
PORTABLE AP CHEST XRAY: DATE: 10/18/17. HISTORY: Dyspnea. COMPARISON: 09/23/17. FINDINGS: There is increased density seen at each lung base with mass-like opacities seen at lung base and over lying the right mid lung zone. The mass-like densities could be related to pseudotumor secondary to fluid in the region of the major fissures, but these mass-like densities have increased when compared to prior exam. There are moderate bilateral pleural effusions present. There is minimal patchy den sity seen within the right suprahilar region which could be related to a focal area of pneumonitis. Evidence of prior granulomatous disease. The cardiac silhouette is at the upper limits of normal in size. Pulmonary vasculature is within normal limits. Vascular calcification is seen in the thoracic aorta. IMPRESSION: 1. Moderate bilateral pleural effusions with mass-like densities seen at each lung base which may be related to pseudotumor secondary to fluid within the fissures giving the appearance of lesions. How ever, findings have increased from prior exam, and CT scan thorax is suggested for further evaluation . 2. Minimal patchy density in the right suprahilar region which may be related to a focal area of pne umonitis. This can also be further evaluated on CT examination. CODE T POS: DIANA
== END 2017-10-18 10:30 | disposition home or self-care (01) ==
LOC: RAD 10:29
PROVIDERS: ATTEND Internal Medicine
DX: J90 Pleural effusion, not elsewhere classified (principal); R91.8 Other nonspecific abnormal finding of lung field
CPT/HCPCS: 36415; 71046; 80048; 83735

== ENCOUNTER 2017-11-04 19:15 | Inpatient (IN) | payer MEDICARE ==
[~2017-11-04 19:15] MED LIST: ISOVUE-370 76%-LOCM 1 ML ONE
[2017-11-04 19:52] LABS: #Eosinphils 0.1 thou/uL (0.0-0.7); #Lymphocytes 1.5 thou/uL (1.20-3.40); #Monocytes 1.4 thou/uL (0.11-0.59); #Neutrophils 10.5 thou/uL (1.40-6.50); %Basophils 0.4 % (0.0-1.0); %Eosinophils 0.5 % (0.0-10.0); %Lymphocytes 11.3 % (21.0-51.0); %Monocytes 10.3 % (0.0-10.0); %Neutrophils 77.6 % (42.0-75.0); Hemoglobin 11.6 g/dL (14.0-18.0); Mean Corpuscular HGB CONC 30.8 g/dL (32.0-36.0); Mean Corpuscular Hemoglobin 23.1 pg (27.0-31.0); Mean Corpuscular Volume 75.2 fl (80.0-94.0); Mean Platelet Volume 6.7 fL (7.4-10.4); Platelet Count 439 thou/uL (130-400); RBC Distribution Width 17.1 % (11.5-14.5); Red Blood Cell (RBC) Count 5.01 mill/uL (4.70-6.10); White Blood Cell (WBC) Count 13.6 thou/uL (4.8-10.8)
[2017-11-04 19:58] LABS: INR-International Normal Ratio 1.1; PTT 33.3 SEC (22.9-36.1); Prothrombin Time 14.4 SEC (12.0-14.7)
[2017-11-04 20:15] LABS: ALT (SGPT) 19 U/L (8-55); AST (SGOT) 22 U/L (5-34); Albumin 2.7 g/dL (3.4-4.8); Alkaline Phosphatase 82 U/L (40-150); Anion Gap 12 mmol/L (10-20); BUN (Urea Nitrogen) 30 mg/dL (8.4-25.7); Bilirubin, Total 0.5 mg/dL (0.2-1.2); Calc. Creatinine Clearance 0 mL/min (70-130); Calcium 8.4 mg/dL (7.8-10.44); Carbon Dioxide 31 mmol/L (23-31); Chloride 96 mmol/L (98-107); Estimated GFR-MDRD 70; Globulin 2.9 g/dL (2.4-3.5); Glucose 115 mg/dL (80-115); Potassium 4.2 mmol/L (3.5-5.1); Protein, Total 5.6 g/dL (5.8-8.1); Sodium 135 mmol/L (136-145)
[2017-11-04] MEDS ORDERED: Water For Inject, Bacteriostat 30 ML ONE (20:17)
[2017-11-04] MEDS ORDERED: Ketorolac Tromethamine 30 MG/ML VIAL ONE (20:17)
[2017-11-04] MEDS ORDERED: methylPREDNISolone Sod Succ/PF 125 MG/2 ML VIAL ONE (20:17)
--- NOTE | 2017-11-04 20:18 | RAD ---
CHEST ONE VIEW: 11/04/17 HISTORY: Shortness of breath. COMPARISON: Chest radiograph 10/18/17. FINDINGS: Large layering effusions bilaterally. These have mildly increased in size from the comparison examina tion. There is layering of fluid within both major fissures and the right minor fissure. Heart size is mildly enlarged. No pneumothorax. IMPRESSION: Similar to mildly worsening layering loculated pleural effusions. POS: [facility]
[2017-11-04 20:33] LABS: CKMB 0.2 ng/mL (0-6.6); Troponin I Less than 0.010 ng/mL (< 0.028)
--- NOTE | 2017-11-04 21:14 | CT ---
CT ANGIOGRAM CHEST WITH CONTRAST 11/04/17 HISTORY: Shortness of breath, hypoxia, mesothelioma. COMPARISON: Radiograph same day. CT chest 10/12. FINDINGS: CT angiogram of the chest performed after the intravenous administration of contrast. 3D rendering pr ovided. Loculated effusions are similar to slightly size increase from the comparison examination. Th ere is visceral and parietal hyperenhancement. There are calcified and noncalcified pleural plaques. Pulmonary trunk is dilated to 33 mm. Numerous hypodensities of the liver are similar. Renal cortices are thin. Large calcification superior left renal collecting system measuring 6 mm. Aortic contour is nonaneurysmal. Small pericardial effusion. Abnormal soft tissue nodule abutting the mediastinal pleura on series 2, image 62. This measures 1.2 x 1.6 x 1.7 cm and is increased in size from the comparison examination. Severe emphysematous changes. IMPRESSION: 1. Soft tissue mass measuring up to 1.6 cm in the right upper lobe abutting the mediastinal pleu ra concerning for malignant process. PET CT may be beneficial. 2. Chronic loculated effusions with visceral and parietal pleural hyperenhancement. 3. Pulmonary arterial hypertension. 4. Severe emphysema. 5. No acute pulmonary embolism. 6. Small pericardial effusion. Code T Code LN POS: ROYA
[2017-11-04] MEDS ORDERED: Piperacillin/Tazobactam 3.375 GM VIAL ONE (21:42)
[2017-11-04 22:12] LABS: Bilirubin Negative (Negative); Blood, Urine Moderate (Negative); Clarity TURBID (Clear); Glucose, Urine (Dipstick) Negative (Negative); Leukocyte Large (Negative); Nitrite Positive (Negative); Protein, Urine (Dipstick) Negative (Neg-Trace); Specific Gravity, Urine 1.027 (1.002-1.036); pH, Urine 5.5 (5.0-9.0)
[2017-11-04 22:14] LABS: Bacteria/HPF 4+ HPF (None Seen); Squamous Epithelial 0-3 HPF (0-3)
[2017-11-04 22:15] LABS: Pathc Cast-AUWi Flag 4.65 (0-2.49)
[2017-11-04 22:27] LABS: Renal Epithelial 0-3 HPF (0-3)
[2017-11-04 22:28] LABS: Hyaline Casts/LPF 0-3 HYALINE CAST LPF (0-3 Hyaline)
[2017-11-05] MEDS ORDERED: Ondansetron ODT 4 MG TAB SL PRN (00:19)
[2017-11-05] MEDS ORDERED: Ondansetron HCl/PF 4 MG/2 ML Vial IVP PRN (00:19)
[2017-11-05] MEDS ORDERED: Acetaminophen 325 MG TAB PO PRN (00:19)
[2017-11-05] MEDS ORDERED: Albuterol Sulfate 2.5 mg/3 ml Neb NEB PRN (00:24)
[2017-11-05] MEDS ORDERED: Milk Of Magnesia 30 ML UDCUP PO PRN (00:25)
[2017-11-05] MEDS ORDERED: VANCOMYCIN IVPB PRN (00:38)
[2017-11-05 01:02] VITALS: BMI 20.2
--- NOTE | 2017-11-05 04:13 | HP ---
PRIMARY CARE PHYSICIAN: Dr. Saavedra. PRESENTING COMPLAINT: Shortness of breath. HISTORY OF PRESENT ILLNESS: Mr. Ko Gutiérrez is a 67-year-old male who has a past medical history of BPH, hypertension, and mesothelioma diagnosed in 2011, as well as a history of chronic respiratory failure on 2-3 liters of oxygen at baseline. He presented to the emergency room with complaints of shortness of breath and hypoxia, noting that his oxygen saturation was less than 80% at home and had to increase to about 5 liters of oxygen to maintain saturations. He also has a cough, but reports this is his chronic cough and has not been any recent changes in the cough. He has a fever with temperature of 101 degree Fahrenheit, but does not report any chills. He also has some sharp pain below his rib cage, but does not report any overt chest pain, palpitations, PND, orthopnea, or lower extremity edema. He has no abdominal or urinary symptoms. At the emergency room, he was found to have mild leukocytosis of 13.6. Serum chemistry was largely unremarkable and lactic acid was 1.5. Urinalysis showed moderate amount of blood, positive nitrites, leukocyte esterase with increased wbc of greater than 50, and 4+ bacteria. A CTA of his chest/thorax showed severe emphysematous changes and soft tissue mass measuring up to 1.6 cm in the right upper lobe. He also has chronic loculated effusions with visceral and parietal pleural hyperenhancement, there was no acute pulmonary embolism and only a small pericardial effusion seen. Chest x-ray revealed similar to mildly worsening layering of his loculated pleural effusion. EKG showed no signs of acute ischemia. He received nebulizer treatments, IV ketorolac, parenteral steroids and also, vancomycin and Zosyn with marked improvement of his respiratory status. Blood cultures were taken and the patient was admitted for sepsis likely secondary to healthcare associated pneumonia. PAST MEDICAL HISTORY: As stated in the HPI. Other medical history includes COPD. PAST SURGICAL HISTORY: C4-C5 neck surgery, varicose veins ablation, intussusception as an infant. FAMILY HISTORY: Reviewed and noncontributory. SOCIAL HISTORY: Does not use illicit drugs. He quit smoking in 10/2016 after he had smoked a pack a day for nearly 40 years. Does not drink alcohol. ALLERGIES: SULFA. HOME MEDICATIONS: Albuterol sulfate inhaler q.4 hours p.r.n., Augmentin 875 mg q.12 hours, Symbicort 2 puff inhaled b.i.d., finasteride 5 mg daily, fluticasone propionate 1 spray in each naris daily, furosemide 40 mg daily, prednisone 10 mg q.a.m. REVIEW OF SYSTEMS: All systems reviewed and negative except as stated in HPI. PHYSICAL EXAMINATION: VITAL SIGNS: On arrival, blood pressure was 121/89, pulse rate was 99, respiratory rate was 25, and oxygen saturation was 100% on nonrebreather. GENERAL: By the time of my exam, he was not in any acute distress and he seemed comfortable. He was on nasal cannula oxygen. He was saturating at 98%. HEENT: Normocephalic, atraumatic. Not pale, anicteric. PERRLA, EOMI. Moist mucous membranes. NECK: Supple, full range of movement. No JVD. RESPIRATORY: He has crackles in his left lower lung zone with reduced breath sounds globally. CARDIOVASCULAR: S1, S2 with regular rate and rhythm. No murmurs, rubs or gallops. ABDOMEN: Soft, nontender, nondistended. No organomegaly. Bowel sounds normoactive. GENITOURINARY: Scrotal edema. NEUROLOGIC: Alert and well oriented to time, place and person. No focal deficits. MUSCULOSKELETAL: No lower extremity edema. Moves all extremities spontaneously. SKIN: Warm, dry, well-perfused. No rashes or lesions. PSYCHIATRIC: Normal mood and affect. LABORATORY DATA: Urinalysis as stated in HPI. CMP with no marked abnormalities. BNP 115. Troponin less than 0.010. INR 1.1. Hematology showed mild leukocytosis, but otherwise largely unremarkable. IMAGING: CTA chest/thorax: As stated in HPI. Chest x-ray as stated in the HPI. EKG no acute ischemia. ASSESSMENT AND PLAN: 1. Sepsis: This is likely due to an upper respiratory tract infection versus healthcare-associated pneumonia. Blood cultures have been taken and the patient has been started on broad spectrum antibiotic with vancomycin and Zosyn. We will also place on IV Solu-Medrol every 6 hours, as well as scheduled on p.r.n. nebulizer therapy. We will follow up on the blood cultures and consult Pulmonary to reassess the patient in the morning. The patient does not seem to have worsening pleural effusion, so we will not continue on IV furosemide. We will place the patient on his home p.o. furosemide. 2. Acute on chronic hypoxic respiratory failure: As Above. 3. Benign prostatic hypertrophy: We will resume home medication. 4. Hypertension: Blood pressure is currently well controlled. We will resume home medications once confirmed. 5. History of mesothelioma: This was diagnosed in 2011 and he has completed a year of chemo and 6 months of maintenance treatment, which he was unable to tolerate and quit treatment altogether for this in 2013. We will continue treatment per problem #1. 6. Chronic obstructive pulmonary disease: He is in acute on chronic respiratory failure. Treatment as per problem #1. Deep venous thrombosis prophylaxis: Lovenox. Code status: DNI. MTDD
[2017-11-05 04:42] LABS: ALT (SGPT) 16 U/L (8-55); AST (SGOT) 15 U/L (5-34); Albumin 2.5 g/dL (3.4-4.8); Alkaline Phosphatase 74 U/L (40-150); Anion Gap 10 mmol/L (10-20); BUN (Urea Nitrogen) 30 mg/dL (8.4-25.7); Bilirubin, Total 0.3 mg/dL (0.2-1.2); Calc. Creatinine Clearance 52 mL/min (70-130); Calcium 8.6 mg/dL (7.8-10.44); Carbon Dioxide 33 mmol/L (23-31); Chloride 95 mmol/L (98-107); Estimated GFR-MDRD 55; Globulin 3.2 g/dL (2.4-3.5); Glucose 300 mg/dL (80-115); Potassium 4.1 mmol/L (3.5-5.1); Protein, Total 5.7 g/dL (5.8-8.1); Sodium 134 mmol/L (136-145)
[2017-11-05 05:28] LABS: #Lymphocytes 0.7 thou/uL (1.20-3.40); #Monocytes 0.1 thou/uL (0.11-0.59); #Neutrophils 10.1 thou/uL (1.40-6.50); %Basophils 0.1 % (0.0-1.0); %Lymphocytes 6.7 % (21.0-51.0); %Monocytes 0.8 % (0.0-10.0); %Neutrophils 92.3 % (42.0-75.0); Hemoglobin 10.9 g/dL (14.0-18.0); Hypochromia SLIGHT = 6-15 cells (100X) (0-5/hpf); MDiff Complete? YES; Mean Corpuscular HGB CONC 29.4 g/dL (32.0-36.0); Mean Corpuscular Hemoglobin 22.3 pg (27.0-31.0); Mean Corpuscular Volume 75.9 fl (80.0-94.0); Mean Platelet Volume 6.7 fL (7.4-10.4); Microcytosis SLIGHT = 6-15 cells (100X) (0-5/hpf); PLT Morphology Comment Appears Increased; Platelet Count 430 thou/uL (130-400); RBC Distribution Width 17.1 % (11.5-14.5); Red Blood Cell (RBC) Count 4.89 mill/uL (4.70-6.10)
[2017-11-05] MEDS: Piperacillin/Tazobactam 3.375 GM in Sodium Chloride 0.9% 100 ML IVPB SCH ×4 (06:05→23:30)
[2017-11-05] MEDS: Docusate 100 MG CAP PO SCH ×2 (08:54→20:54)
[2017-11-05] MEDS: Vancomycin HCl 1 GM in Premix Bag 1 BAG IVPB SCH ×2 (08:55→20:55)
[2017-11-05] MEDS ORDERED: Enoxaparin Sodium 40 MG/0.4 ML SYRINGE SC SCH (09:00)
[2017-11-05] MEDS ORDERED: Furosemide 40 MG/4 ML VIAL SLOW IVP SCH (09:00)
[2017-11-05] MEDS ORDERED: Vancomycin HCl 1 GM in Sodium Chloride 0.9% 250 ML 250 ML IVPB SCH (09:00)
[2017-11-05] MEDS ORDERED: Nitroglycerin 0.4 MG TAB (25 Tab Bottle) PO PRN (16:38)
[2017-11-05] MEDS ORDERED: Calcium Carbonate 500 MG ChewTAB PO PRN (16:39)
[2017-11-05] MEDS ORDERED: Mag-Al 1200 mg/1200 mg/30 ML UDCUP PO PRN (16:39)
[2017-11-05] MEDS ORDERED: Ketorolac Tromethamine 30 MG/ML VIAL IVP SCH (16:45)
[2017-11-05 17:27] LABS: Troponin I Less than 0.010 ng/mL (< 0.028)
--- NOTE | 2017-11-05 19:38 | CON ---
DATE OF CONSULTATION: 11/05/2017 HISTORY OF PRESENT ILLNESS: A 67-year-old gentleman who presented to the hospital with 2 days histor y of right-sided chest pain, somewhat pleuritic in nature. No fever or chills. When he came to the ER, his temperature was 100. Additionally, he felt his sats were low at home, they are apparently 80 % on 2 liters when he arrived. The patient was diagnosed to have a mesothelioma in 2012. He had seen Dr. Crockett and received chemo therapy, though she has not seen him for at least 3 years or so. He states 6 months ago, he walked about half a block. The last week, his dyspnea has worsened such t hat he can barely walk even 20 feet without getting markedly short of breath. PAST MEDICAL HISTORY: COPD, bilateral loculated pleural effusion, malignant mesothelioma, status pos t chemotherapy, sleep apnea. PAST SURGICAL HISTORY: Included a thoracentesis, C4 neck surgery, some kind of abdominal surgery don e in the past. Previous tobacco abuse, quit smoking some years ago. 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 MEDICATIONS: From home includes metolazone 2.5, Lasix 40, potassium 99, finasteride 5 mg. ALLERGIES: SULFA. REVIEW OF SYSTEMS: Ten point negative. PHYSICAL EXAMINATION: VITAL SIGNS: His O2 sat is 93 on 2 liters, respirations 18, temperature 97, and blood pressure 115/6 3. CHEST: Decreased breath sounds bilaterally. CARDIOVASCULAR: Normal S1, S2, no gallops. ABDOMEN: Soft. EXTREMITIES: No edema. NEUROLOGIC: Awake, alert, responsive. LABORATORY DATA: White count 11,000, H and H of 10 and 37, platelet count 430. His electrolytes are normal. Creatinine is 1.29. Urine shows 50 or greater wbcs. His initial chest x-ray showed bilateral densities in the past, loculated. CT of his chest confirms the above pleural effusion and a spiculated mass. IMPRESSION: 1. Dyspnea, probably secondary to bilaterally large loculated pleural effusion. 2. Malignant mesothelioma. PLAN: He was started on broad-spectrum antibiotics for presumed infection. I was continuing to rosemary calate as soon as we get all the cultures back. In the meantime, agree with nebulizer treatments, st erroxann. We will notify Dr. Santillan.
--- NOTE | 2017-11-05 20:00 | PDOC.PN ---
- Subjective Encounter Start Date: 11/05/17 Encounter Start Time: 14:00 Patient seen and examined for Resp failure. Feels better. No new complaints. No overnight events - Objective Resuscitation Status: Resuscitation Status DNI:No Intubation MAR Reviewed: Yes Vital Signs & Weight: Vital Signs (12 hours) Temp Pulse Resp BP Pulse Ox 11/05/17 18:34 92 L 11/05/17 18:19 83 16 92 L 11/05/17 16:26 97.5 F L 79 16 127/79 92 L 11/05/17 12:22 75 14 94 L 11/05/17 11:31 98.1 F 80 16 132/76 92 L 11/05/17 08:00 97.6 F 74 18 93 L Weight Weight 149 lb 8 oz I&O: 11/04/17 11/05/17 11/06/17 06:59 06:59 06:59 Intake Total 400 1650 Output Total 750 500 Balance -350 1150 Result Diagrams: 11/07/17 04:01 11/07/17 04:01 Radiology Reviewed by me: Yes (CXR - No Pneumonia, loculated pleural eff) Phys Exam - Physical Examination Constitutional: NAD Respiratory: no rales dec AE at bases with scat rhonchi Cardiovascular: RRR, no rub Gastrointestinal: soft, non-tender, positive bowel sounds Musculoskeletal: no edema Neurological: moves all 4 limbs Dx/Plan (1) Acute respiratory failure with hypoxemia Code(s): J96.01 - ACUTE RESPIRATORY FAILURE WITH HYPOXIA Status: Acute (2) Sepsis due to pneumonia Code(s): J18.9 - PNEUMONIA, UNSPECIFIED ORGANISM; A41.9 - SEPSIS, UNSPECIFIED ORGANISM Status: Acute Comment: Healthcare associated Pneumonia ?Staph vs Strep (3) Bilateral pleural effusion Code(s): J90 - PLEURAL EFFUSION, NOT ELSEWHERE CLASSIFIED Status: Acute (4) COPD exacerbation Code(s): J44.1 - CHRONIC OBSTRUCTIVE PULMONARY DISEASE W (ACUTE) EXACERBATION Status: Acute (5) Hyperglycemia, unspecified Code(s): R73.9 - HYPERGLYCEMIA, UNSPECIFIED Status: Acute (6) HTN (hypertension) Code(s): I10 - ESSENTIAL (PRIMARY) HYPERTENSION Status: Acute (7) BPH (benign prostatic hyperplasia) Code(s): N40.0 - BENIGN PROSTATIC HYPERPLASIA WITHOUT LOWER URINRY TRACT SYMP Status: Chronic - Plan DVT proph w/SCDs Cont Atbx/Steroids -: Pulm following -: Cont current meds as below -: A1C in AM due to hyperglycemia Review of Systems - Review of Systems Constitutional: negative: fever, chills, sweats, weakness, malaise, other Respiratory: Cough, Dry, Sputum Cardiovascular: negative: chest pain, palpitations, orthopnea, paroxysmal nocturnal dyspnea, edema, light headedness, other - Medications/Allergies Allergies/Adverse Reactions: Allergies Allergy/AdvReac Type Severity Reaction Status Date / Time Sulfa (Sulfonamide Allergy Headache Verified 11/05/17 00:45 Antibiotics) Medications: Current Medications Al Hydroxide/Mg Hydroxide (Maalox) 30 ml PO Q6H PRN PRN Reason: Heartburn or Indigestion Albuterol Sulfate (Ventolin) 2.5 mg NEB Q2H PRN PRN Reason: SOB &/or Wheezing Albuterol/Ipratropium (Duoneb) 3 ml NEB Z2SD-OF [facility] Last Admin: 11/05/17 18:19 Dose: 3 ml Calcium Carbonate (Tums) 1,000 mg PO Q4H PRN PRN Reason: Heartburn or Indigestion Docusate Sodium (Colace) 100 mg PO BID [facility] Last Admin: 11/05/17 08:54 Dose: 100 mg Famotidine (Pepcid) 20 mg PO BID [facility] Piperacillin Sod/Tazobactam (Sod 3.375 gm/ Sodium Chloride) 100 mls @ 200 mls/ hr IVPB Q6HR [facility] Last Admin: 11/05/17 17:08 Dose: 100 mls Vancomycin HCl 1 gm/ Device 200 mls @ 200 mls/hr IVPB Q12HR [facility] Last Admin: 11/05/17 08:55 Dose: 200 mls Magnesium Hydroxide (Milk Of Magnesium) 30 ml PO DAILYPRN PRN PRN Reason: Constipation Methylprednisolone Sodium Succinate (Solu-Medrol) 40 mg IVP Q6HR [facility] Last Admin: 11/05/17 17:08 Dose: 40 mg Miscellaneous Medication (Pharmacy To Dose) 1 each IVPB PRN PRN PRN Reason: SEPSIS Nitroglycerin (Nitrostat) 0.4 mg PO Q5MIN PRN PRN Reason: Chest Pain Saccharomyces Boulardii (Florastor) 250 mg PO DAILY [facility]
[2017-11-05] MEDS: Famotidine 20 MG TAB PO SCH (20:54)
[2017-11-05 21:36] LABS: Troponin I Less than 0.010 ng/mL (< 0.028)
[2017-11-06 05:13] LABS: Anion Gap 12 mmol/L (10-20); BUN (Urea Nitrogen) 31 mg/dL (8.4-25.7); Calc. Creatinine Clearance 60 mL/min (70-130); Calcium 8.5 mg/dL (7.8-10.44); Carbon Dioxide 31 mmol/L (23-31); Chloride 98 mmol/L (98-107); Estimated GFR-MDRD 65; Glucose 149 mg/dL (80-115); Magnesium 2.2 mg/dL (1.6-2.6); Potassium 3.9 mmol/L (3.5-5.1); Sodium 137 mmol/L (136-145)
[2017-11-06] MEDS: Piperacillin/Tazobactam 3.375 GM in Sodium Chloride 0.9% 100 ML IVPB SCH ×4 (05:40→23:41)
[2017-11-06 06:34] LABS: Band 10 % (5-11); Hemoglobin 10.6 g/dL (14.0-18.0); Lymphocytes 5 % (21-51); MDiff Complete? YES; Mean Corpuscular HGB CONC 29.5 g/dL (32.0-36.0); Mean Corpuscular Hemoglobin 22.6 pg (27.0-31.0); Mean Corpuscular Volume 76.6 fl (80.0-94.0); Mean Platelet Volume 6.6 fL (7.4-10.4); Monocytes 2 % (0-10); Neutrophil 83 % (42-75); Platelet Count 449 thou/uL (130-400); RBC Distribution Width 16.9 % (11.5-14.5); Red Blood Cell (RBC) Count 4.72 mill/uL (4.70-6.10)
[2017-11-06 08:12] LABS: Vancomycin, Trough 15.9 ug/mL
[2017-11-06] MEDS ORDERED: Potassium Chloride 20 MEQ TAB PO SCH (08:15)
[2017-11-06] MEDS: Vancomycin HCl 1 GM in Premix Bag 1 BAG IVPB SCH ×2 (09:20→21:23)
[2017-11-06] MEDS: Docusate 100 MG CAP PO SCH ×2 (09:24→21:22)
[2017-11-06] MEDS: Famotidine 20 MG TAB PO SCH ×2 (09:24→21:22)
[2017-11-06] MEDS: Furosemide 40 MG TAB PO SCH ×2 (09:24→13:32)
[2017-11-06] MEDS: Finasteride 5 MG TAB PO SCH (09:24)
[2017-11-06] MEDS: Saccharomyces boulardii 250 MG CAP PO SCH (09:25)
--- NOTE | 2017-11-06 12:25 | PRG ---
DATE OF SERVICE: 11/06/2017 SERVICE: Pulmonary Medicine. INTERVAL HISTORY: The patient is doing fine from a respiratory standpoint today. His pleuritic chest discomfort has resolved. He denies any current chest pain, nausea, vomiting, fevers or chills. He is breathing very comfortably today. Otherwise, there has been no interval change to his condition. He had no overnight fevers. PHYSICAL EXAMINATION: VITAL SIGNS: Afebrile, pulse 98, blood pressure 109/75, respirations 20, saturation 95% on 2 liters nasal cannula. GENERAL: The patient is awake and alert, in no apparent distress. LUNGS: Really decent air entry. There is a slightly prolonged expiratory phase , but I do not appreciate wheezing, crackles or rhonchi today. HEART: Normal rate and regular. ABDOMEN: Soft, nontender, nondistended. Bowel sounds are positive. MUSCULOSKELETAL: No cyanosis or clubbing. There is no pitting in the bilateral lower extremities. NEUROLOGIC: Grossly nonfocal. LABORATORY DATA: WBC 20.0, hemoglobin 10.6, platelets 449,000. Neutrophil count is 83% with 10% bands today. INR 1.1. Basic metabolic profile is essentially unremarkable other than a bicarbonate that is elevated chronically at 31. Magnesium 2.2. Troponins are negative x3. Hemoglobin A1c 6.0. Lactate normal. Nitrites are positive in the urine and there is significant leukocyte esterase and elevated white blood cell count. Vancomycin trough 15.9. Blood cultures x2 are unremarkable to date. IMAGING: CTA of the chest demonstrates no evidence of a pulmonary embolism. There is a right upper lobe pulmonary mass/infiltrate. ASSESSMENT: 1. Healthcare-associated pneumonia, suspected. 2. Acute on chronic hypoxic respiratory failure. 3. History of malignant mesothelioma. 4. Chronic obstructive pulmonary disease with acute exacerbation. 5. Chronic diastolic heart failure. 6. Obstructive sleep apnea and central sleep apnea, severe. PLAN: I will deescalate our steroids. We will continue our nebulized medications. We will need repeat imaging in the outpatient setting in 6 weeks. I will probably end up doing a PET scan. Empiric antibiotics will be continued for the time being directed at healthcare-associated organisms. Pulmonary Critical Care will continue to follow. [facility]ITALNicolle
--- NOTE | 2017-11-06 12:47 | EKG ---
Test Reason : Blood Pressure : / mmHG Vent. Rate : 079 BPM Atrial Rate : 079 BPM P-R Int : 154 ms QRS Dur : 132 ms QT Int : 432 ms P-R-T Axes : 042 075 049 degrees QTc Int : 495 ms Sinus rhythm with Premature atrial complexes with Abberant conduction Right bundle branch block Abnormal ECG When compared with ECG of 21-SEP-2017 10:51, Sinus rhythm has replaced Junctional rhythm Right bundle branch block has replaced Incomplete right bundle branch block Non-specific change in ST segment in Anterior leads Confirmed by TORI HERNANDEZ M.D. ([id number]), metropolitan editor MYA WOOD ([id number]) on 11/06/2017 12:46:52 PM Referred By: Confirmed By:TORI HERNANDEZ M.D.
--- NOTE | 2017-11-06 14:32 | PQF ---
ANNE COMER MALIK MD [id number] CLINICAL DOCUMENTATION IMPROVEMENT CLARIFICATION FORM: ICD-10 Updated PLEASE DO AN ADDENDUM TO THE PROGRESS NOTE WITH ANY DOCUMENTATION UPDATES OR ADDITIONS AND CARRY THROUGH TO DC SUMMARY. THANK YOU. DATE: 11-06-17 ATTN: DR. CRANDALL Please exercise your independent, professional judgment in responding to the clarification form. Clinical indicators are provided on the bottom of this form for your review Please check appropriate box(s) to clarify if the following diagnosis has been ruled in or ruled out: SEPSIS [ ] Ruled in diagnosis [ ] Continue to treat [ ] Resolved [ ] Ruled out diagnosis [ ] Cannot rule out diagnosis [ ] Other diagnosis [ ] Unable to determine For continuity of documentation, please document condition throughout progress notes and discharge summary. Thank You. CLINICAL INDICATORS - SIGNS / SYMPTOMS / LABS ED: SEPSIS; ACUTE HYPOXIC RESP FAILURE; COPD EXAC; SEPSIS ALERT PULSE 96-99 RESP 20-25.TEMP 99.1-101.1 ORAL O2 SAT 80% ON 2LNC - 97% ON 3LNC - 100% ON NRB COPD ON HOME O2 CONSTANTLY H&P: PT WAS ADMITTED FOR SEPSIS LIKELY SECONDARY TO [facility]ALTH[employer] PNA RISK FACTORS H&P: COPD ON HOME OXYGEN HX MESOTHELIOMA DX IN 2011 CHRONIC LOCULATED EFFUSIONS TREATMENTS H&P: BLD CULTURES - NO GROWTH TO DATE VANC/ZOSYN; SOLUMEDROL; NEBULIZER; PULMONARY CONSULT THANK YOU, JING (This form is maintained as a part of the permanent medical record) 2014 [employer]. All Rights Reserved Jing Estrada RN, BS [email or web address]
[2017-11-06] MEDS: Potassium Chloride 20 MEQ TAB PO SCH (17:04)
--- NOTE | 2017-11-06 22:42 | PDOC.PN ---
- Subjective Encounter Start Date: 11/06/17 Encounter Start Time: 11:30 Patient seen and examined for Sepsis/Resp failure. Feels better. Some dry cough. No new complaints. No overnight events - Objective Resuscitation Status: Resuscitation Status DNI:No Intubation MAR Reviewed: Yes Vital Signs & Weight: Vital Signs (12 hours) Temp Pulse Resp BP BP Pulse Ox 11/06/17 20:00 98.1 F 85 20 114/72 92 L 11/06/17 18:31 90 14 93 L 11/06/17 13:30 84 15 11/06/17 11:56 98.0 F 90 20 109/75 95 Weight Weight 149 lb 8 oz I&O: 11/05/17 11/06/17 11/07/17 06:59 06:59 06:59 Intake Total 400 2450 Output Total 750 1200 250 Balance -350 1250 -250 Result Diagrams: 11/07/17 04:01 11/07/17 04:01 Phys Exam - Physical Examination Constitutional: NAD Respiratory: no wheezing Bibasilar rales with scat rhonchi Cardiovascular: RRR, no rub Gastrointestinal: soft, non-tender, positive bowel sounds Musculoskeletal: no edema Dx/Plan (1) Sepsis due to pneumonia Code(s): J18.9 - PNEUMONIA, UNSPECIFIED ORGANISM; A41.9 - SEPSIS, UNSPECIFIED ORGANISM Status: Acute Comment: Healthcare associated Pneumonia ?Staph vs Strep (2) Acute respiratory failure with hypoxemia Code(s): J96.01 - ACUTE RESPIRATORY FAILURE WITH HYPOXIA Status: Acute (3) Bilateral pleural effusion Code(s): J90 - PLEURAL EFFUSION, NOT ELSEWHERE CLASSIFIED Status: Acute (4) COPD exacerbation Code(s): J44.1 - CHRONIC OBSTRUCTIVE PULMONARY DISEASE W (ACUTE) EXACERBATION Status: Acute (5) Hyperglycemia, unspecified Code(s): R73.9 - HYPERGLYCEMIA, UNSPECIFIED Status: Acute (6) HTN (hypertension) Code(s): I10 - ESSENTIAL (PRIMARY) HYPERTENSION Status: Acute (7) BPH (benign prostatic hyperplasia) Code(s): N40.0 - BENIGN PROSTATIC HYPERPLASIA WITHOUT LOWER URINRY TRACT SYMP Status: Chronic - Plan continue antibiotics, DVT proph w/SCDs Change Lasix to 80 mg once daily (per patient req) -: cont Nebs/O2/Steroids -: AM labs -: Cont current meds as below Review of Systems - Review of Systems Cardiovascular: negative: chest pain, palpitations, orthopnea, paroxysmal nocturnal dyspnea, edema, light headedness, other Gastrointestinal: negative: Nausea, Vomiting, Abdominal Pain, Diarrhea, Constipation, Melena, Hematochezia, Other - Medications/Allergies Allergies/Adverse Reactions: Allergies Allergy/AdvReac Type Severity Reaction Status Date / Time Sulfa (Sulfonamide Allergy Headache Verified 11/05/17 00:45 Antibiotics) Medications: Current Medications Al Hydroxide/Mg Hydroxide (Maalox) 30 ml PO Q6H PRN PRN Reason: Heartburn or Indigestion Albuterol Sulfate (Ventolin) 2.5 mg NEB Q2H PRN PRN Reason: SOB &/or Wheezing Albuterol/Ipratropium (Duoneb) 3 ml NEB [id number] [facility] Last Admin: 11/06/17 18:31 Dose: 3 ml Calcium Carbonate (Tums) 1,000 mg PO Q4H PRN PRN Reason: Heartburn or Indigestion Docusate Sodium (Colace) 100 mg PO BID [facility] Last Admin: 11/06/17 21:22 Dose: 100 mg Famotidine (Pepcid) 20 mg PO BID [facility] Last Admin: 11/06/17 21:22 Dose: 20 mg Finasteride (Proscar) 5 mg PO DAILY [facility] Last Admin: 11/06/17 09:24 Dose: 5 mg Furosemide (Lasix) 40 mg PO 0900,1400 [facility] Stop: 11/06/17 23:59 Last Admin: 11/06/17 13:32 Dose: 40 mg Furosemide (Lasix) 80 mg PO DAILY-[facility] Piperacillin Sod/Tazobactam (Sod 3.375 gm/ Sodium Chloride) 100 mls @ 200 mls/ hr IVPB Q6HR [facility] Last Admin: 11/06/17 17:02 Dose: 100 mls Vancomycin HCl 1 gm/ Device 200 mls @ 200 mls/hr IVPB Q12HR [facility] Last Admin: 11/06/17 21:23 Dose: 200 mls Magnesium Hydroxide (Milk Of Magnesium) 30 ml PO DAILYPRN PRN PRN Reason: Constipation Miscellaneous Medication (Pharmacy To Dose) 1 each IVPB PRN PRN PRN Reason: SEPSIS Nitroglycerin (Nitrostat) 0.4 mg PO Q5MIN PRN PRN Reason: Chest Pain Potassium Chloride (K-Dur) 20 meq PO BID-[facility] Last Admin: 11/06/17 17:04 Dose: 20 meq Prednisone (Prednisone) 40 mg PO QAM-[facility] Saccharomyces Boulardii (Florastor) 250 mg PO DAILY [facility] Last Admin: 11/06/17 09:25 Dose: 250 mg
[2017-11-07 05:16] LABS: Anion Gap 11 mmol/L (10-20); BUN (Urea Nitrogen) 34 mg/dL (8.4-25.7); Calc. Creatinine Clearance 64 mL/min (70-130); Calcium 7.9 mg/dL (7.8-10.44); Carbon Dioxide 30 mmol/L (23-31); Chloride 99 mmol/L (98-107); Estimated GFR-MDRD 70; Glucose 99 mg/dL (80-115); Potassium 3.4 mmol/L (3.5-5.1); Sodium 137 mmol/L (136-145)
[2017-11-07 05:39] LABS: #Lymphocytes 1.2 thou/uL (1.20-3.40); #Monocytes 1.6 thou/uL (0.11-0.59); %Basophils 0.1 % (0.0-1.0); %Eosinophils 0.1 % (0.0-10.0); %Lymphocytes 6.2 % (21.0-51.0); %Monocytes 7.8 % (0.0-10.0); %Neutrophils 85.7 % (42.0-75.0); Hemoglobin 10.3 g/dL (14.0-18.0); Mean Corpuscular HGB CONC 29.8 g/dL (32.0-36.0); Mean Corpuscular Hemoglobin 22.5 pg (27.0-31.0); Mean Corpuscular Volume 75.2 fl (80.0-94.0); Mean Platelet Volume 6.8 fL (7.4-10.4); Platelet Count 460 thou/uL (130-400); RBC Distribution Width 16.8 % (11.5-14.5); Red Blood Cell (RBC) Count 4.59 mill/uL (4.70-6.10); White Blood Cell (WBC) Count 19.9 thou/uL (4.8-10.8)
[2017-11-07] MEDS: Piperacillin/Tazobactam 3.375 GM in Sodium Chloride 0.9% 100 ML IVPB SCH ×2 (05:41→11:37)
[2017-11-07 07:30] VITALS: BP 118/74; TEMP 98.4
[2017-11-07] MEDS ORDERED: Furosemide 80 MG TAB PO SCH (07:30)
[2017-11-07] MEDS: Vancomycin HCl 1 GM in Premix Bag 1 BAG IVPB SCH (07:48)
[2017-11-07] MEDS: Docusate 100 MG CAP PO SCH (07:48)
[2017-11-07] MEDS: Saccharomyces boulardii 250 MG CAP PO SCH (07:48)
[2017-11-07] MEDS: Finasteride 5 MG TAB PO SCH (07:48)
[2017-11-07] MEDS: Famotidine 20 MG TAB PO SCH (07:48)
[2017-11-07] MEDS: Potassium Chloride 20 MEQ TAB PO SCH (07:48)
[2017-11-07] MEDS ORDERED: predniSONE 20 MG TAB PO SCH (08:00)
[2017-11-07] MEDS ORDERED: Potassium Chloride 20 MEQ TAB PO SCH ×2 (12:00→13:30)
--- NOTE | 2017-11-07 13:16 | PRG ---
DATE OF SERVICE: 11/07/2017 SERVICE: Pulmonary Medicine. INTERVAL HISTORY: The patient is doing really well from a respiratory standpoint. He indicates retu rning to his usual state of health. He has no complaints of chest pain, nausea, vomiting, fevers or chills. PHYSICAL EXAMINATION: VITAL SIGNS: Afebrile, pulse 92, blood pressure 118/74, respirations 20, saturation 94% on 2 liters nasal cannula. GENERAL: The patient is awake, alert, no apparent distress. LUNGS: Decent air entry. There is a slightly prolonged expiratory phase with wheezing. Crackles ar e also present. I do not appreciate rhonchi. HEART: Normal rate, regular. ABDOMEN: Soft, nontender, and nondistended. Bowel sounds are positive. MUSCULOSKELETAL: No cyanosis or clubbing. No pitting in the bilateral lower extremities. NEUROLOGIC: Grossly nonfocal. LABORATORY DATA: WBC 19.9, hemoglobin 10.3 and platelets 460,000. Basic metabolic profile is essent ially unremarkable. Potassium is 3.4. Urinalysis was abnormal. Blood cultures x2 are unremarkable. ASSESSMENT: 1. Healthcare-associated pneumonia. 2. Acute on chronic hypoxic respiratory failure. 3. History of malignant mesothelioma. 4. Chronic obstructive pulmonary disease with acute exacerbation, mild. 5. Chronic diastolic heart failure. 6. Obstructive sleep apnea and central sleep apnea, severe. 7. Urinary tract infection. DISCUSSION AND PLAN: We will replace his potassium. We will continue supportive care including anti biotics, nebulized medications and steroids. He will need to complete a 5-day course of steroids and a 7-day course of antibiotics. We can convert him over to something oral and he can subsequently be transitioned out of the hospital. Potassium will be replaced today. I would like for him to go [facility] on nebulized DuoNebs which he can use every 6 hours on an as needed basis. We will continue his ho me inhalers on discharge from the hospital. If he remains in-house, Pulmonary or Critical Care will continue to follow.
--- NOTE | 2017-11-08 13:52 | DIS ---
DATE OF DISCHARGE: 11/07/2017 DISCHARGE DISPOSITION: Home. FOLLOWUP: 1. Follow up with primary care physician, Dr. Carolina in 1 week. 2. Follow up with Dr. Santillan after 1-2 weeks. ALLERGIES: The patient is allergic to SULFA. The patient was seen and examined on the day of discharge, denies any new complaints. Shortness of b reath has significantly improved. DISCHARGE MEDICATIONS: 1. Levaquin 750 mg daily for next 7 days. 2. Prednisone 40 mg daily for next 3 days. 3. Florastor 250 mg daily. All other home medications were left, unchanged. BRIEF HOSPITAL COURSE: The patient is a 67-year-old male with COPD who presented to the hospital wit h persistent shortness of breath. Please refer to the history and physical for further details. The patient was admitted to the hospital with a diagnosis of respiratory failure. CT angiogram of th e chest was negative for pulmonary embolism. It showed chronic loculated effusions with a soft tissu e mass in the right upper lobe. The patient was evaluated by Pulmonary, Dr. Santillan. He showed good improvement with antibiotics and steroids. He also required noninvasive positive pressure ventilati on during this hospital stay. He has been cleared by Pulmonary for discharge. FINAL DIAGNOSES: 1. Acute hypoxic respiratory failure, resolved. 2. Sepsis due to pneumonia. 3. Loculated-pleural effusion, chronic. 4. Chronic obstructive pulmonary disease exacerbation. 5. Hyperglycemia due to impaired glucose tolerance. A1c was 6.0. 6. Hypokalemia, replaced. 7. Hyponatremia. 8. Benign prostatic hypertrophy. 9. Hypertension. 10. Chronic anemia. 11. Mild protein-calorie malnutrition. Plan of care was discussed with the patient in detail. He stated understanding.
== END 2017-11-07 15:13 | disposition home or self-care (01) | DRG 871 ==
LOC: ERS 19:15 → T4-B 21:45
PROVIDERS: ADMIT Internal Medicine; ATTEND Internal Medicine
DX: A41.9 Sepsis, unspecified organism (principal); J18.9 Pneumonia, unspecified organism; J96.20 Acute and chronic respiratory failure, unspecified whether with hypoxia or hypercapnia; J44.0 Chronic obstructive pulmonary disease with (acute) lower respiratory infection; J44.1 Chronic obstructive pulmonary disease with (acute) exacerbation; I50.32 Chronic diastolic (congestive) heart failure; N39.0 Urinary tract infection, site not specified; N40.0 Benign prostatic hyperplasia without lower urinary tract symptoms; Z99.81 Dependence on supplemental oxygen; Z87.891 Personal history of nicotine dependence; Z88.2 Allergy status to sulfonamides; Z66 Do not resuscitate; I11.0 Hypertensive heart disease with heart failure; G47.33 Obstructive sleep apnea (adult) (pediatric); G47.37 Central sleep apnea in conditions classified elsewhere; Z85.89 Personal history of malignant neoplasm of other organs and systems; Z92.21 Personal history of antineoplastic chemotherapy; R73.9 Hyperglycemia, unspecified
CPT/HCPCS: 36415; 51702; 71045; 71275; 80048; 80053; 80202; 81003; 81015; 82553; 83036; 83605; 83735; 83880; 84484; 85025; 85610; 85730; 87040; 93005; 93010; 94640; 94760; 96365; 96375; J1650; J1885; J2543; J2920; J2930; J3370; J7050; J7506; J7620